=== PATIENT | female | born 1995 | race Caucasian/White ===

== ENCOUNTER 2020-10-05 10:12 | Inpatient (IN) | payer SELFPAY ==
[2020-10-05 10:12] VITALS: BP 108/83; PULSE 94; RESP 18; TEMP 37.1; O2SAT 98
--- NOTE | 2020-10-05 10:32 | W.ED.PSYCH ---
HPI - Psych General: Chief Complaint: Psychiatric Symptoms Stated Complaint: SI Time Seen by Provider: 10/05/20 10:13 Source: patient Mode of arrival: EMS Limitations: no limitations History of Present Illness: HPI Narrative: Patient is a 25-year-old female who presents to ED today with a complaint of suicidal ideations. Patient tells me she has a plan to walk out in front of a semi truck. She tells me approximately 12 months ago she tried to kill herself by walking out in front of traffic. She tells me she is supposed to be taking Prozac for her depression and anxiety however has not been taking this medication. She admits to recent methamphetamine use. She is not homicidal. She does admit to auditory hallucinations although she realizes these are not real. MD complaint: suicidal ideation and feels depressed Onset (ago): day(s) Duration: constant History of same: Yes Relieving factors: none Context: recent drug abuse and not taking psychiatric medications Associated psychiatric symptoms: depression, suicidal ideation and auditory hallucinations Associated symptoms: Reports auditory hallucinations, depression and suicidal ideation; Deny visual hallucinations or homicidal ideation Treatments prior to arrival: none If self harm: admits thoughts of self harm and has plan Review of Systems Const: Denies: fever(s) or chills Card: Denies: chest pain, palpitations, lightheadedness or syncope Resp: Denies: dyspnea GI: Denies: abdominal pain, nausea, vomiting or diarrhea Skin/Breast: Denies: rash Neuro: Denies: headache(s) Psych: Reports: anxiety, depression, panic attacks, loss of interest, auditory hallucinations and suicidal ideation; Denies: visual hallucinations or homicidal ideation Physical Exam Const: COMMON NORMALS: patient oriented x3, no limitations, alert and well nourished GENERAL APPEARANCE: cooperative and well kempt ORIENTATION/CONSCIOUSNESS: Yes awake, Yes oriented to person, Yes oriented to place and Yes oriented to time OTHER: very tearful during history Resp: COMMON NORMALS: normal respiratory effort and clear to auscultation bilaterally AUSCULTATION: clear to auscultation bilaterally Cardio: COMMON NORMALS: regular rate and regular rhythm RATE: regular rate RHYTHM: regular rhythm Neuro: COMMON NORMALS: patient oriented x3 SENSORIUM/ORIENTATION: Yes alert, Yes oriented to person, Yes oriented to place and Yes oriented to time Psych: COMMON NORMALS: mental status grossly normal, Normal thought process present, cooperative, speech normal and activity/motor behavior normal APPEARANCE: Yes grossly normal and Yes well kempt ATTITUDE: Yes calm and Yes Other attitude/behavior findings present (Psych) (tearful) ACTIVITY/MOTOR BEHAVIOR: Yes appropriate eye contact and No psychomotor agitation SPEECH: Yes normal speech MOOD & AFFECT: Yes depressed mood and Yes Flat affect present THOUGHT PROCESS: Normal thought process present THOUGHT CONTENT: Yes Normal thought content present ATTENTION/CONCENTRATION: Yes attention grossly intact and Yes concentration grossly intact MEMORY/COGNITION: Yes memory grossly intact and Yes cognition grossly intact INSIGHT: Good insight present (Psych) JUDGEMENT: Good judgement present (Psych) MDM - Psych Lab Data: Labs: Lab Results 10/05/20 10/05/20 10/05/20 Range/Units 10:58 11:12 11:12 WBC 7.4 (4.0-10.0) 10^3/ uL RBC 4.09 L (4.1-5.3) 10^6/u L Hgb 12.2 (11.5-15.3) g/dL Hct 36.8 L (37.0-47.0) % MCV 90.0 (81-99) fL MCH 29.8 (28.0-34.0) pg MCHC 33.2 (30.0-36.0) g/dL RDW 11.9 L (12.1-15.1) % Plt Count 247 (130-400) 10^3/c mm MPV 10.2 (7.4-10.4) fL Neut % (Auto) 68.3 % Lymph % (Auto) 25.2 % [place] % (Auto) 5.7 % Eos % (Auto) 0.0 % Baso % (Auto) 0.5 % Neut # (Auto) 5.04 (1.8-7.7) 10^3/u L Lymph # (Auto) 1.9 (0.8-4.8) 10^3/u L [place] # (Auto) 0.4 (0.2-0.9) 10^3/u L Eos # (Auto) 0.0 (0.0-0.8) 10^3/u L Baso # (Auto) 0.0 (0.0-0.1) 10^3/u L Nucleated RBC % (a uto) 0 % Nucleated RBCs # 0.0 /100WBC Sodium 140 (136-145) mmol/L Potassium 3.7 (3.5-5.1) mmol/L Chloride 105 (98-107) mmol/L Carbon Dioxide 23 (22-29) mmol/L Anion Gap 15.7 (5-19) BUN 16 (6-20) mg/dL Creatinine 0.7 (0.5-0.9) mg/dL GFR Calculation 102.0 (90-130) mL/min Glucose 81 (65-115) mg/dL Calculated Osmolal ity 290 (285-295) mOsm/k g Calcium 8.5 (8.5-10.5) mg/dL Total Bilirubin 0.6 (0.15-1.2) mg/dL AST 25 (0-32) U/L ALT 22 (0-33) U/L Alkaline Phosphata se 27 L (35-105) IU/L Total Protein 6.8 (6.6-8.7) g/dL Albumin 4.0 (3.5-5.2) g/dL Globulin 2.8 (1.3-4.6) g/dL HCG, Qual (Negative) Salicylates < 0.3 L (3-10) mg/dL Urine Opiates Scre en Negative (Negative) ng/mL Acetaminophen < 5.0 L (10-30) ug/mL Ur Barbiturates Sc reen Negative (Negative) ng/mL Ur Phencyclidine S crn Negative (Negative) ng/mL Ur Amphetamines Sc reen Positive H (Negative) ng/mL U Benzodiazepines Scrn Negative (Negative) ng/mL Urine Cocaine Scre en Negative (Negative) ng/mL U Marijuana (THC) Screen Negative (Negative) ng/mL Ethyl Alcohol < 10 (0-10) mg/dL 10/05/20 Range/Units 11:12 WBC (4.0-10.0) 10^3/ uL RBC (4.1-5.3) 10^6/u L Hgb (11.5-15.3) g/dL Hct (37.0-47.0) % MCV (81-99) fL MCH (28.0-34.0) pg MCHC (30.0-36.0) g/dL RDW (12.1-15.1) % Plt Count (130-400) 10^3/c mm MPV (7.4-10.4) fL Neut % (Auto) % Lymph % (Auto) % [place] % (Auto) % Eos % (Auto) % Baso % (Auto) % Neut # (Auto) (1.8-7.7) 10^3/u L Lymph # (Auto) (0.8-4.8) 10^3/u L [place] # (Auto) (0.2-0.9) 10^3/u L Eos # (Auto) (0.0-0.8) 10^3/u L Baso # (Auto) (0.0-0.1) 10^3/u L Nucleated RBC % (a uto) % Nucleated RBCs # /100WBC Sodium (136-145) mmol/L Potassium (3.5-5.1) mmol/L Chloride (98-107) mmol/L Carbon Dioxide (22-29) mmol/L Anion Gap (5-19) BUN (6-20) mg/dL Creatinine (0.5-0.9) mg/dL GFR Calculation (90-130) mL/min Glucose (65-115) mg/dL Calculated Osmolal ity (285-295) mOsm/k g Calcium (8.5-10.5) mg/dL Total Bilirubin (0.15-1.2) mg/dL AST (0-32) U/L ALT (0-33) U/L Alkaline Phosphata se (35-105) IU/L Total Protein (6.6-8.7) g/dL Albumin (3.5-5.2) g/dL Globulin (1.3-4.6) g/dL HCG, Qual Negative (Negative) Salicylates (3-10) mg/dL Urine Opiates Scre en (Negative) ng/mL Acetaminophen (10-30) ug/mL Ur Barbiturates Sc reen (Negative) ng/mL Ur Phencyclidine S crn (Negative) ng/mL Ur Amphetamines Sc reen (Negative) ng/mL U Benzodiazepines Scrn (Negative) ng/mL Urine Cocaine Scre en (Negative) ng/mL U Marijuana (THC) Screen (Negative) ng/mL Ethyl Alcohol (0-10) mg/dL Discharge Plan Discharge Patient Disposition: Admitted As Inpatient Clinical Impression: Suicidal ideation, Methamphetamine use Condition: Stable Prescriptions: No Action ibuprofen 200 mg Tablet 400 mg PO PRN RF: 0 Coding Level of Care Code ED Copy Chaser for Ro Fwd Exam Expanded Problem Focused
--- NOTE | 2020-10-05 10:32 | PC.NURSE ---
Patient admitted to using meth and that she feels like a horrible person. Patient does want help.
--- NOTE | 2020-10-05 11:06 | PC.PHAR ---
pt states she is suppose to be taking prozac but hasnt taken it in months
[2020-10-05 11:23] LABS: Amphetamines Screen Urine Positive (Negative); Barbiturates Screen Urine Negative (Negative); Benzodiazepines Screen Urine Negative (Negative); Cocaine Screen Urine Negative (Negative); Opiate Screen Urine Negative (Negative); PCP Screen Urine Negative (Negative); THC Screen Urine Negative (Negative)
[2020-10-05 11:24] LABS: Basophils % 0.5 %; Hematocrit 36.8 % (37.0-47.0); Hemoglobin 12.2 g/dL (11.5-15.3); Lymphocytes # 1.9 10^3/uL (0.8-4.8); Lymphocytes % 25.2 %; Mean Corpuscular HGB Conc 33.2 g/dL (30.0-36.0); Mean Corpuscular Hemoglobin 29.8 pg (28.0-34.0); Mean Platelet Volume 10.2 fL (7.4-10.4); Monocytes # 0.4 10^3/uL (0.2-0.9); Monocytes % 5.7 %; Neutrophils # 5.04 10^3/uL (1.8-7.7); Neutrophils % 68.3 %; Nucleated Red Blood Cells % 0 %; Platelet Count 247 10^3/cmm (130-400); Red Blood Count 4.09 10^6/uL (4.1-5.3); Red Cell Distribution Width 11.9 % (12.1-15.1); White Blood Count 7.4 10^3/uL (4.0-10.0)
[2020-10-05 11:51] LABS: HCG, Serum Qual Negative (Negative)
[2020-10-05 11:55] LABS: Alanine Aminotransferase 22 U/L (0-33); Alkaline Phosphatase 27 IU/L (35-105); Anion Gap 15.7 (5-19); Aspartate Amino Transferase 25 U/L (0-32); Blood Urea Nitrogen 16 mg/dL (6-20); Calcium 8.5 mg/dL (8.5-10.5); Carbon Dioxide 23 mmol/L (22-29); Chloride 105 mmol/L (98-107); Globulin 2.8 g/dL (1.3-4.6); Glucose 81 mg/dL (65-115); Osmolality Calculated 290 mOsm/kg (285-295); Potassium 3.7 mmol/L (3.5-5.1); Sodium 140 mmol/L (136-145); Total Bilirubin 0.6 mg/dL (0.15-1.2); Total Protein 6.8 g/dL (6.6-8.7)
[2020-10-05 11:58] LABS: Salicylate < 0.3 mg/dL (3-10)
[2020-10-05 11:59] LABS: Acetaminophen < 5.0 ug/mL (10-30); Alcohol Level < 10 mg/dL (0-10)
[2020-10-05 12:11] VITALS: BP 128/88; PULSE 98; RESP 18; TEMP 36.8
[2020-10-05 12:30] VITALS: BP 125/80; PULSE 75; RESP 16; O2SAT 98
[2020-10-05 13:53] VITALS: BP 95/64; PULSE 92; RESP 18; TEMP 36.8
--- NOTE | 2020-10-05 20:09 | PC.NURSE ---
ANXIOUS APPEARING, TEARFUL, DENIES WANTING TO HARM SELF. SAYS UNABLE TO GET IN TOUCH WITH BOYFRIEND AND HE IS PROBABLY WANTING TO KNOW WHERE SHE IS
[2020-10-05] MEDS: hyDROXYzine 25 mg Capsule 50 MG PO (20:46)
[2020-10-05] MEDS: trazodone 50 mg Tablet PO (20:46)
[2020-10-05 21:26] VITALS: BP 93/52; PULSE 81; RESP 20; TEMP 36.5; O2SAT 91
[2020-10-06 06:00] VITALS: BP 91/52; PULSE 66; RESP 18; TEMP 36.7; O2SAT 96
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
[2020-10-06 13:53] VITALS: BP 91/52; PULSE 68; RESP 18; TEMP 37.3; O2SAT 97
[2020-10-06] MEDS: fluoxetine 20 mg Capsule PO (18:39)
[2020-10-06 19:31] VITALS: BP 89/55; PULSE 73; TEMP 36.8; O2SAT 97
[2020-10-06] MEDS: trazodone 50 mg Tablet PO (19:36)
[2020-10-06] MEDS: hyDROXYzine 25 mg Capsule 50 MG PO (19:36)
[2020-10-07 05:45] VITALS: BP 87/51; PULSE 78; RESP 18; TEMP 36.8; O2SAT 97
[2020-10-07] MEDS: fluoxetine 20 mg Capsule PO (08:27)
[2020-10-07 14:00] VITALS: BP 92/57; PULSE 65; RESP 20; TEMP 36.9; O2SAT 98
--- NOTE | 2020-10-07 17:39 | PM.NPN ---
Subjective NPU Subjective: Interval history: Vania presents today denying any issues with her medication but endorsing that she continues to have odd thoughts. She continued to be quite guarded in her interactions and struggling to seem safe and comfortable. We discussed her connecting with the social work team and hopefully being able to find some sober living follow-up that will assist her in avoiding drug use. She reports that she is eating okay and sleeping a little better. Mental Status Exam MSE Comments: This is a slender possibly slightly underweight white female in hospital scrubs with limited grooming and eye contact. Tattoos on exposed skin noted no abnormal movements except for psychomotor retardation. Semicooperative with exam in mild distress. Speech was limited and decreased rate and volume. Mood described as may be a little better, affect guarded. Thought process organized. Thought content: Patient denied suicidal or homicidal ideation, there were no delusions reported, but she did appear paranoid in her interactions with this commercial underwriter and others, she denied auditory or visual hallucinations and found to be attending to internal stimuli occasionally. Attention and concentration were limited and memory appeared mostly reliable but none were formally tested. She was alert and oriented x3. Insight and judgment were limited and impulse control was impaired Vitals/I&O/Wt Last Vital Signs Temp 98.5 F 10/07/20 22:00 Pulse 83 10/07/20 22:00 Resp 17 10/07/20 22:00 BP 95/58 10/07/20 22:00 Pulse Ox 97 10/07/20 22:00 Data NPU : 10/05/20 11:12 10/05/20 11:12 A&P Additional A&P Information (1) Depression: (2) Anxiety: (3) Psychosis: (4) Suicidal ideation: (5) Methamphetamine use: Additional A&P Information This is a 25-year-old white female with a long history of trauma and active addiction who presents status post methamphetamine use with depression, psychosis and suicidal thinking fairly guarded with interactions. 1. Continue current medication. 2. Continue every 15 minute checks for safety. 3. Encourage individual, group and milieu therapy. 4. Encourage sober living treatment discharge to high-level care to which she is willing to commit. Involuntary Hold Information 96 Hour Hold: 96 Hour Involuntary Admission: No Attestations NPU Medical Necessity Statement*: Inpatient hospitalization is medically necessary and the clinically appropriate intervention at this time. We will monitor medications and make changes as indicated. Likely length of stay 2-4 days. Coding Level of Care Code Acute Neurological Surgery Teacher for Ro Velazquez
[2020-10-07] MEDS: hyDROXYzine 25 mg Capsule 50 MG PO (21:12)
[2020-10-07] MEDS: trazodone 50 mg Tablet PO (21:12)
[2020-10-07 22:00] VITALS: BP 95/58; PULSE 83; RESP 17; TEMP 36.9; O2SAT 97
[2020-10-08 06:00] VITALS: BP 95/60; PULSE 60; RESP 17; TEMP 36.3; O2SAT 97
[2020-10-08] MEDS: fluoxetine 20 mg Capsule PO (08:11)
[2020-10-08 14:00] VITALS: BP 96/63; PULSE 72; RESP 20; TEMP 36.2; O2SAT 99
--- NOTE | 2020-10-08 18:46 | P.PN_ITS ---
Subjective NPU Subjective: Interval history: Vania presents today reporting that she is feeling a little better. She feels like she in the social work team may have found a reasonable discharge that will allow her to be safe and attempt to embark on her recovery. Discussed the possibility of discharge in the next 48 hours and she understood and agreed to proceed as is documented in this note. Mental Status Exam MSE Comments: This is a slender possibly slightly underweight white female in hospital scrubs with limited grooming and eye contact. Tattoos on exposed skin noted no abnormal movements except improving psychomotor retardation. More cooperative with exam in mild distress. Speech was more spontaneous and more normal rate and volume. Mood described as may be better, affect congruent. Thought process organized. Thought content: Patient denied suicidal or homicidal ideation, there were no delusions reported, but she did appear paranoid in her interactions with this sba underwriter and others, she denied auditory or visual hallucinations and found to be attending to internal stimuli occasionally. Attention and concentration were limited and memory appeared mostly reliable but none were formally tested. She was alert and oriented x3. Insight and judgment were limited, but improving and impulse control was impaired Vitals/I&O/Wt Last Vital Signs Temp 99.8 F H 10/08/20 20:09 Pulse 73 10/08/20 20:09 Resp 17 10/08/20 20:09 BP 90/61 10/08/20 20:09 Pulse Ox 100 10/08/20 20:09 Data NPU : 10/05/20 11:12 10/05/20 11:12 A&P Assessment and plan (1) Borderline intellectual functioning: Status: Acute Additional A&P Information (1) Depression: (2) Anxiety: (3) Psychosis: (4) Suicidal ideation: (5) Methamphetamine use: Additional A&P Information This is a 25-year-old white female with a long history of trauma and active addiction who presents status post methamphetamine use with depression, psychosis and suicidal thinking fairly guarded with interactions. 1. Continue current medication. 2. Continue every 15 minute checks for safety. 3. Encourage individual, group and milieu therapy. 4. Encourage sober living treatment discharge to high-level care to which she is willing to commit. 5. Consider discharge in the next 48 hours. Involuntary Hold Information 96 Hour Hold: 96 Hour Involuntary Admission: No Attestations NPU Medical Necessity Statement*: Inpatient hospitalization is medically necessary and the clinically appropriate intervention at this time. We will monitor medications and make changes as indicated. Likely length of stay 1-3 days. Coding Level of Care Code Acute Corporate Operations Compliance Manager for Chg Fwd Diagnoses Borderline intellectual functioning R41.83
[2020-10-08 20:09] VITALS: BP 90/61; PULSE 73; RESP 17; TEMP 37.7; O2SAT 100
[2020-10-08] MEDS: trazodone 50 mg Tablet PO (21:45)
[2020-10-09 06:00] VITALS: BP 97/59; PULSE 61; RESP 18; TEMP 37.2; O2SAT 97
[2020-10-09] MEDS: fluoxetine 20 mg Capsule PO (08:51)
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
[2020-10-09 12:53] VITALS: BP 97/59; PULSE 61; RESP 18; TEMP 37.2; O2SAT 97
== END 2020-10-09 13:45 | disposition home or self-care (01) | DRG 885 ==
LOC: ER 12:11 → NP 12:25
PROVIDERS: Admitting Provider Psychiatry & Neurology Psychiatry; Emergency Provider Physician Assistant; Visit Provider Psychiatry & Neurology Psychiatry
DX: F23 Brief psychotic disorder (principal); R45.851 Suicidal ideations; F41.8 Other specified anxiety disorders; Z91.14 Patient's other noncompliance with medication regimen; F15.10 Other stimulant abuse, uncomplicated; R41.83 Borderline intellectual functioning; Z81.8 Family history of other mental and behavioral disorders
CPT/HCPCS: 12345; 80053; 80306; 80307; 84703; 85025; 99284